=== PATIENT | female | born 1950 | race Caucasian/White ===

== ENCOUNTER 2020-11-26 08:30 | Observation (INO) ==
[2020-11-26 10:14] LABS: Bacteria,Urine Few per hpf (None-Few); Basophils # 0.1 K/mcL (0.0-0.2); Basophils % 0.2 %; Bilirubin,Urine Small (Negative); Blood,Urine Negative (Negative); Clarity,Urine Turbid (Clear); Color,Urine Yellow (Yellow); Glucose,Urine (UA) 30 mg/dL (Normal); Hematocrit 40.8 % (35.3-44.9); Hemoglobin 13.5 g/dL (11.5-15.4); Hyaline Casts,Urine Many per lpf (None Seen); Immature Granulocytes % 0.7 % (0-4); Ketones,Urine 60 mg/dL (Negative); Leukocyte Esterase,Urine Moderate (Negative); Lymphocytes # 0.7 K/mcL (0.6-4.6); Lymphocytes % 3.2 %; Mean Corpuscular HGB Conc 33.1 g/dL (31.6-35.5); Mean Corpuscular Hemoglobin 29.6 pg (28.0-33.3); Mean Corpuscular Volume 89.5 fL (83.0-100.0); Mean Platelet Volume 9.7 fL (9.4-12.4); Monocytes # 1.8 K/mcL (0.0-1.3); Monocytes % 7.7 %; Mucus,Urine Many per lpf (None-Few); Neutrophils # 20.1 K/mcL (1.6-8.9); Nitrite,Urine Negative (Negative); Platelet Count 388 K/mcL (140-400); Protein,Urine 100 mg/dL (Neg-Trace); RBC,Urine 0-3 per hpf (0-3); Red Blood Count 4.56 M/mcL (3.82-4.97); Red Cell Distribution Width 14.6 % (11.5-14.5); Renal Epithelial Cells,Urine Few per hpf (None-Few); Segmented Neutrophils % 88.2 %; Squamous Epithelial Cell,Urine Few per hpf (None-Few); Urobilinogen,Urine Normal (Normal); WBC,Urine 30-50 per hpf (0-3)
[2020-11-26 10:20] LABS: White Blood Count 22.8 K/mcL (4.3-11.1)
[2020-11-26] MEDS ORDERED: *HR* FentaNYL (PF) 100 MCG/2 ML VIAL IVP ONE (10:29)
[2020-11-26 10:33] LABS: Alanine Aminotransferase 19 Units/L (7-52); Albumin/Globulin Ratio 1.4 (1.1-2.2); Alkaline Phosphatase 90 Units/L (34-104); Amylase 16 Units/L (29-103); Aspartate Amino Transferase 17 Units/L (13-39); BUN/Creatinine Ratio 16 (6-26); Bilirubin,Direct 0.5 mg/dL (0.0-0.2); Bilirubin,Indirect 1.4 mg/dL (0.0-1.0); Bilirubin,Total 1.9 mg/dL (0.3-1.0); Blood Urea Nitrogen 14 mg/dL (8-23); Calcium 9.2 mg/dL (8.6-10.3); Carbon Dioxide 25 mEq/L (23-29); Chloride 100 mEq/L (98-107); Globulin 2.8 g/dL (2.4-3.5); Glucose 114 mg/dL (70-105); Lipase 3 Units/L (11-82); Osmolality,Calculated 281 (280-300); Potassium 3.7 mEq/L (3.5-5.1); Sodium 135 mEq/L (136-145); Total Protein 6.8 g/dL (6.4-8.9); eGFR For African Americans > 60 (> 60); eGFR For Non-African Americans > 60 (> 60)
[2020-11-26] MEDS ORDERED: 0.9 % Sodium Chloride 1,000 ML IVC ONE (11:27)
[2020-11-26] MEDS ORDERED: Ondansetron 4 MG/2 ML VIAL IVP ONE (11:27)
[2020-11-26] MEDS ORDERED: Piperacillin/Tazobactam 3.375 GM in 0.9 % Sodium Chloride Mini Bag 100 ML IVPB ONE (11:27)
[2020-11-26] MEDS ORDERED: cefTRIAXone 1,000 MG in 0.9 % Sodium Chloride Mini Bag 100 ML IVPB ONE (11:29)
[2020-11-26] MEDS ORDERED: 0.9 % Sodium Chloride 1,000 ML IVC SCH (12:00)
[2020-11-26] MEDS ORDERED: Ondansetron 4 MG/2 ML VIAL IVP PRN ×2 (13:36→19:44)
[2020-11-26] MEDS ORDERED: *HR* Propofol 200 MG/20 ML VIAL IVP ONE (15:08)
[2020-11-26] MEDS ORDERED: *HR* FentaNYL (PF) 100 MCG/2 ML VIAL ONE (15:08)
[2020-11-26] MEDS ORDERED: Lidocaine -MPF 2% 2 ML VIAL ONE (15:08)
[2020-11-26] MEDS ORDERED: Lidocaine -MPF 4% 5 ML AMPUL ONE (15:08)
[2020-11-26] MEDS ORDERED: *HR* Rocuronium Bromide 50 MG/5 ML VIAL ONE (15:08)
[2020-11-26] MEDS ORDERED: Ondansetron 4 MG/2 ML VIAL ONE (15:08)
[2020-11-26] MEDS ORDERED: Isovue-300 50ML VIAL ONE (16:19)
[2020-11-26] MEDS ORDERED: Sugammadex Sodium 200 MG/2 ML VIAL IV ONE (17:25)
[2020-11-26] MEDS: *HR* HYDROmorphone PF 0.5 MG/0.5 ML SYRINGE IVP PRN ×4 (18:25→18:49)
[2020-11-26] MEDS ORDERED: Ketorolac 15 MG/ML VIAL IVP SCH (18:30)
[2020-11-26] MEDS: diazePAM 2 MG TABLET PO SCH (20:40)
[2020-11-27] MEDS: Ampicillin/Sulbactam 3,000 MG in 0.9 % Sodium Chloride Mini Bag 100 ML IVPB SCH ×2 (00:08→05:09)
[2020-11-27] MEDS: Ketorolac 15 MG/ML VIAL IVP SCH ×2 (00:09→05:09)
[2020-11-27] MEDS: diazePAM 2 MG TABLET PO SCH (08:14)
[2020-11-27] MEDS ORDERED: amLODIPine 5 MG TABLET PO SCH (09:00)
[2020-11-27 09:54] LABS: Hematocrit 35.2 % (35.3-44.9); Mean Corpuscular HGB Conc 31.5 g/dL (31.6-35.5); Mean Corpuscular Hemoglobin 28.9 pg (28.0-33.3); Mean Corpuscular Volume 91.7 fL (83.0-100.0); Mean Platelet Volume 9.6 fL (9.4-12.4); Platelet Count 340 K/mcL (140-400); Red Blood Count 3.84 M/mcL (3.82-4.97); Red Cell Distribution Width 14.7 % (11.5-14.5)
[2020-11-27 09:58] LABS: Hemoglobin 11.1 g/dL (11.5-15.4)
[2020-11-27 12:30] VITALS: BP 102/57; PULSE 82; TEMP 98.1; O2SAT 95
== END 2020-11-27 12:39 | disposition home or self-care (01) ==
LOC: EMEROOARM 08:30 → 3BNU 08:30
PROVIDERS: ADMIT Surgery; ATTEND Surgery